=== PATIENT | female | born 1975 | race Caucasian/White ===

== ENCOUNTER → 2020-09-21 | Day surgery (SDC) | payer OTHER ==
[~2020-09-21] MED LIST: CYCLOBENZAPRINE10 MG PO; GABAPENTIN800 MG PO; HYDROCODON-ACE1 EAC2 PO; NAPROXEN 375 M375 MG GT; PROTONIX40 MG PO; ZOFRAN4 MG PO
[2020-09-21 08:11] LABS: HEMOGLOBIN 14.7 gm/dl (12.3-15.3); RED BLOOD COUNT 4.84 M/UL (4.00-5.10); WHITE BLOOD COUNT 12.5 K/UL (4.5-11.0)
== END | disposition home or self-care (01) ==
LOC: OR 07:34
PROVIDERS: Obstetrics & Gynecology
DX: L73.2 Hidradenitis suppurativa (principal); L72.0 Epidermal cyst; N90.7 Vulvar cyst; L82.1 Other seborrheic keratosis; F41.9 Anxiety disorder, unspecified; F32.9 Major depressive disorder, single episode, unspecified; K21.9 Gastro-esophageal reflux disease without esophagitis; F17.210 Nicotine dependence, cigarettes, uncomplicated; Z79.899 Other long term (current) drug therapy
CPT/HCPCS: 36415; 81001; 85025; J0690; J1100; J1170; J1885; J2001; J2250; J2405; J2704; J2795; J3010; J7120